=== PATIENT | female | born 1955 | race Caucasian/White ===

== ENCOUNTER 2024-06-22 12:08 | Emergency (ER) | payer BC, OTHER ==
[~2024-06-22] VITALS: Ht 167.6 cm; Wt 68.0 kg
[~2024-06-22 12:08] MED LIST: CIPR-262 PO
[2024-06-22 14:08] VITALS: BP 138/79; O2SAT 98
== END 2024-06-22 14:00 | disposition home or self-care (01) ==
LOC: ER 12:08
DX: Z04.1 Encounter for examination and observation following transport accident (principal); Z79.899 Other long term (current) drug therapy; Z88.0 Allergy status to penicillin
CPT/HCPCS: 71250; A4606; A4663